=== PATIENT | male | born 1950 | race Caucasian/White ===

== ENCOUNTER 2017-07-03 08:27 | Emergency (ER) | payer OTHER ==
[~2017-07-03] VITALS: Ht 182.8 cm; Wt 108.9 kg
[~2017-07-03 08:27] MED LIST: ASPIRIN81 M1 PO; ATENOLOL25 MG PO; CIPRO500 MG PO; CLARITIN10 MG PO; DOCUSATE SODIUM1 TA2 PO; MIRALAX POWDER255 G1 PO; OMEPRAZOLE20 M2 PO; PRAZOSIN HCL2 MG PO; SENNA DOCUSATE PO; XANAX1 MG PO
[2017-07-03 08:51] LABS: BASO % 0.2 % (0.0-1.0); EOS # 0.1 10*3/uL (0.0-0.4); EOS % 0.6 % (1.0-4.0); HEMATOCRIT 43.7 % (42.0-52.0); HEMOGLOBIN 14.2 g/dl (14.0-18.0); LYMPH # 1.5 10*3/uL (1.3-4.4); LYMPH % 11.2 % (27.0-41.0); MEAN CELL VOLUME 89.9 fl (80.0-94.0); MEAN CORPUSCULAR HGB 29.2 pg (27.0-31.0); MEAN CORPUSCULAR HGB CONC 32.5 g/dl (33.0-37.0); MEAN PLATELET VOLUME 10.1 fl (9.6-12.3); MONO # 0.8 10*3/uL (0.1-1.0); MONO % 5.9 % (3.0-9.0); NEUT # 10.7 10*3/uL (2.3-7.9); NEUT % 81.8 % (47.0-73.0); PLATELET COUNT AUTOMATED 233 10*3/uL (130-400); RED BLOOD COUNT 4.86 10*6/uL (4.50-5.90); RED CELL DISTRI WIDTH 13.5 % (0-14.5); WHITE BLOOD COUNT 13.1 10*3/uL (4.8-10.8)
[2017-07-03 09:08] LABS: ALBUMIN 3.2 gm/dl (3.1-4.5); ALKALINE PHOSPHATASE 79 U/L (45-117); BUN 12 mg/dl (7-24); CHLORIDE 102 mmol/L (98-107); POTASSIUM 4.2 mmol/L (3.5-5.1); SGOT/AST 14 IU/L (3-35); SGPT/ALT 19 U/L (12-78); SODIUM 138 mmol/L (136-145); TOTAL PROTEIN 7.7 gm/dL (6.4-8.2)
[2017-07-03 09:10] LABS: TROPONIN I < 0.015 ng/ml (<0.045)
[2017-07-03 09:13] LABS: ACT PARTIAL THROMBO TIME 24.7 SECONDS (20.8-31.5); INTERNATIONAL NORM RATIO 1.1 (2.0-3.5)
[2017-07-03] MEDS ORDERED: TESSALON PERLE100 MG PO (10:11)
[2017-07-03] MEDS ORDERED: AVPAK AZITHROM250 M1 PO (10:11)
== END 2017-07-03 10:23 | disposition home or self-care (01) ==
LOC: ED 08:27
PROVIDERS: Emergency Medicine
DX: J18.9 Pneumonia, unspecified organism (principal); I48.2 Chronic atrial fibrillation; Z79.899 Other long term (current) drug therapy; Z79.82 Long term (current) use of aspirin

== ENCOUNTER 2021-01-10 17:19 | Emergency (ER) | payer OTHER ==
[~2021-01-10] VITALS: Ht 182.8 cm; Wt 78.5 kg
[~2021-01-10 17:19] MED LIST changes: +AVPAK AZITHROM250 M1 PO; +TESSALON PERLE100 MG PO
== END 2021-01-10 18:15 | disposition home or self-care (01) ==
LOC: ED 17:19
DX: M72.2 Plantar fascial fibromatosis (principal); I48.91 Unspecified atrial fibrillation; Z95.1 Presence of aortocoronary bypass graft; Z79.01 Long term (current) use of anticoagulants; Z79.899 Other long term (current) drug therapy; Z79.82 Long term (current) use of aspirin; Z98.890 Other specified postprocedural states

== ENCOUNTER 2024-02-11 08:53 | Inpatient (IN) | payer OTHER ==
[2024-02-11] VITALS (43 sets, daily range): BP systolic 67–133; BP diastolic 38–82
[~2024-02-11] VITALS: Ht 182.9 cm; Wt 91.6 kg
[2024-02-11] MEDS ORDERED: SODIUM CHLORIDE 0.9% 1,000 ML IV ONE ×3 (09:10)
[2024-02-11] MEDS ORDERED: IOHEXOL 350 MG/ML 100 ML VIAL IV ONE (09:20)
[2024-02-11] MEDS ORDERED: SODIUM CHLORIDE 0.9% 100 ML BAG IV ONE (09:20)
[2024-02-11] MEDS ORDERED: Metoprolol Tartrate 5 MG/5 ML VIAL IV ONE ×2 (09:25)
[2024-02-11 09:34] LABS: MEAN CORPUSCULAR HGB 24.4 pg (27.0-31.0); MEAN CORPUSCULAR HGB CONC 30.9 g/dl (33.0-37.0); MEAN PLATELET VOLUME 10.2 fl (9.6-12.3); PLATELET COUNT AUTOMATED 194 10*3/uL (130-400); RED BLOOD COUNT 4.43 10*6/uL (4.50-5.90); RED CELL DISTRI WIDTH 16.4 % (0-14.5); WHITE BLOOD COUNT 9.9 10*3/uL (4.8-10.8)
[2024-02-11 09:35] LABS: MANUAL DIFF REFLEX YES
[2024-02-11 09:44] LABS: ACT PARTIAL THROMBO TIME 32.5 SECONDS (20.0-32.1)
[2024-02-11 09:52] LABS: POTASSIUM 4.6 mmol/L (3.4-5.1); TOTAL PROTEIN 7.6 gm/dL (6.0-8.0)
[2024-02-11 09:58] LABS: BURR CELLS MODERATE; MICROCYTOSIS SLIGHT; PLATELET SUFFICIENCY NORMAL (NORMAL); TOTAL CELLS COUNTED 100 #CELLS
[2024-02-11 09:59] LABS: OVALOCYTES FEW; POLYCHROMASIA SLIGHT; ROULEAUX SLIGHT
[2024-02-11] MEDS ORDERED: ACETAMINOPHEN 500 MG TAB PO ONE (10:35)
[2024-02-11] MEDS ORDERED: Vancomycin Hydrochloride 250 ML IV ONE (10:50)
[2024-02-11] MEDS ORDERED: Piperacillin Sodium/Tazobact 50 ML IV ONE (10:50)
[2024-02-11 11:45] LABS: BILIRUBIN Negative (Negative); BLOOD 2+ (Negative); CLARITY Turbid (Clear); COLOR Yellow (Yellow); GLUCOSE 3+ (Negative); KETONE Trace (Negative); LEUKO ESTERASE 3+ (Negative); NITRITE Negative (Negative); PH 6.5 (4.5-8.0); SPECIFIC GRAVITY 1.025 (1.001-1.030)
[2024-02-11 11:56] LABS: WBC TNTC wbc/hpf (0-5)
[2024-02-11] MEDS ORDERED: NOREPINEPHRINE BITARTRATE/D5W 250 ML IV SCH ×2 (12:00→13:40)
[2024-02-11] MEDS ORDERED: Diltiazem Hydrochloride 25 MG/5 ML VIAL IV ONE (12:20)
[2024-02-11] MEDS ORDERED: MORPHINE Sulfate 2 MG/ML SYR IV PRN (13:25)
[2024-02-11] MEDS ORDERED: Acetaminophen/Hydrocodone 5 MG/325 MG TABLET PO PRN (13:25)
[2024-02-11] MEDS ORDERED: ACETAMINOPHEN 325 MG TAB PO PRN (13:25)
[2024-02-11] MEDS ORDERED: DIGOXIN 500 MCG/2 ML AMP IV ONE (13:50)
[2024-02-11] MEDS ORDERED: HEPARIN SODIUM 250 ML IV SCH (14:35)
[2024-02-11] MEDS ORDERED: ELIQUIS5 M1 PO (15:11)
[2024-02-11] MEDS ORDERED: ATORVASTATIN CA80 M1 PO (15:12)
[2024-02-11] MEDS ORDERED: VOLTAREN ARTHRI20 GM T (15:15)
[2024-02-11] MEDS ORDERED: DEXTROSE 10 % IN WATER 250 ML IV PRN (15:15)
[2024-02-11] MEDS ORDERED: JARDIANCE25 MG PO (15:16)
[2024-02-11] MEDS ORDERED: FUROSEMIDE20 M1 PO (15:16)
[2024-02-11] MEDS ORDERED: INSULIN GL100 UNIT/2 SQ (15:18)
[2024-02-11] MEDS ORDERED: LISINOPRIL10 M1 PO (15:18)
[2024-02-11] MEDS ORDERED: LISINOPRIL5 MG PO (15:20)
[2024-02-11] MEDS ORDERED: METOPROLOL TART50 M1 PO (15:21)
[2024-02-11] MEDS ORDERED: METFORMIN HYD1000 MG PO (15:21)
[2024-02-11] MEDS ORDERED: CENTRAVITES 501 EACH PO (15:25)
[2024-02-11] MEDS ORDERED: POTASSIUM CHLO20 ME3 PO (15:27)
[2024-02-11] MEDS ORDERED: FLOMAX0.4 MG PO (15:28)
[2024-02-11] MEDS ORDERED: INSULIN LISPRO 1 UNIT/0.01 ML SQ SCH (16:30)
[2024-02-11] MEDS ORDERED: DICLOFENAC SODIUM 100 GM TUBE T PRN (16:45)
[2024-02-11] MEDS ORDERED: Piperacillin Sodium/Tazobact 2.25 GM in SODIUM CHLORIDE 0.9% 50 ML IV SCH (18:00)
[2024-02-11] MEDS ORDERED: Ondansetron Hydrochloride 4 MG/2 ML VIAL IV PRN (18:50)
[2024-02-11] MEDS ORDERED: ACETAMINOPHEN 325 MG SUPP R PRN (18:50)
[2024-02-11] MEDS ORDERED: ACETAMINOPHEN 650 MG SUPP R PRN (19:32)
[2024-02-11] MEDS ORDERED: DIGOXIN 500 MCG/2 ML AMP IV SCH (20:00)
[2024-02-12] VITALS (21 sets, daily range): BP systolic 86–115; BP diastolic 54–77
[2024-02-12 05:23] LABS: ALKALINE PHOSPHATASE 152 U/L (46-116); BUN 26 mg/dl (9-23); CHLORIDE 103 mmol/L (98-107); FREE T4 0.92 ng/dl (0.89-1.76); POTASSIUM 3.9 mmol/L (3.4-5.1); SGPT/ALT 31 U/L (5-49); TOTAL PROTEIN 6.2 gm/dL (6.0-8.0)
[2024-02-12] MEDS ORDERED: Pantoprazole Sodium 40 MG VIAL IV SCH (06:00)
[2024-02-12 06:15] LABS: MEAN CORPUSCULAR HGB 24.3 pg (27.0-31.0); MEAN CORPUSCULAR HGB CONC 30.7 g/dl (33.0-37.0); MEAN PLATELET VOLUME 11.4 fl (9.6-12.3); PLATELET COUNT AUTOMATED 145 10*3/uL (130-400); RED BLOOD COUNT 3.67 10*6/uL (4.50-5.90); RED CELL DISTRI WIDTH 16.3 % (0-14.5); WHITE BLOOD COUNT 12.6 10*3/uL (4.8-10.8)
[2024-02-12 06:53] LABS: MANUAL DIFF REFLEX YES
[2024-02-12 06:58] LABS: PLATELET SUFFICIENCY NORMAL (NORMAL); TOTAL CELLS COUNTED 100 #CELLS
[2024-02-12 06:59] LABS: ACANTHOCYTES FEW; BURR CELLS MODERATE
[2024-02-12 07:00] LABS: OVALOCYTES FEW
[2024-02-12] MEDS ORDERED: VANCOMYCIN/WATER FOR INJ (PEG) 250 ML IV SCH (08:00)
[2024-02-12] MEDS ORDERED: ASPIRIN ENTERIC COATED 81 MG TAB PO SCH (10:00)
[2024-02-12] MEDS ORDERED: ALPRAZolam 0.5 MG TAB PO SCH (10:00)
[2024-02-12] MEDS ORDERED: Piperacillin Sodium/Tazobact 50 ML IV SCH (12:00)
[2024-02-12] MEDS ORDERED: METOPROLOL SUCCINATE XR 25 MG TAB PO SCH (12:30)
[2024-02-12] MEDS ORDERED: BISACODYL 5 MG TAB PO PRN ×2 (16:45→16:51)
[2024-02-12] MEDS ORDERED: DIGOXIN 500 MCG/2 ML AMP IV PRN (21:30)
[2024-02-13] VITALS: BP 87/59
[2024-02-13] MEDS ORDERED: Diltiazem Hydrochloride 25 MG/5 ML VIAL IV ONE (00:15)
[2024-02-13 04:00] VITALS: BP 95/68
[2024-02-13] MEDS ORDERED: Magnesium Hydroxide 30 ML UDC PO PRN (04:55)
[2024-02-13 05:43] LABS: ALKALINE PHOSPHATASE 178 U/L (46-116); BUN 24 mg/dl (9-23); CHLORIDE 101 mmol/L (98-107); POTASSIUM 4.2 mmol/L (3.4-5.1); SGPT/ALT 40 U/L (5-49); TOTAL PROTEIN 6.3 gm/dL (6.0-8.0)
[2024-02-13 06:31] LABS: HEMATOCRIT 30.7 % (42.0-52.0); MEAN CELL VOLUME 78.3 fl (80.0-94.0); MEAN CORPUSCULAR HGB 24.2 pg (27.0-31.0); MEAN CORPUSCULAR HGB CONC 30.9 g/dl (33.0-37.0); MEAN PLATELET VOLUME 11.8 fl (9.6-12.3); PLATELET COUNT AUTOMATED 127 10*3/uL (130-400); RED BLOOD COUNT 3.92 10*6/uL (4.50-5.90); RED CELL DISTRI WIDTH 16.6 % (0-14.5); WHITE BLOOD COUNT 10.9 10*3/uL (4.8-10.8)
[2024-02-13 06:35] LABS: MANUAL DIFF REFLEX YES
[2024-02-13 07:15] LABS: TOTAL CELLS COUNTED 100 #CELLS
[2024-02-13 07:16] LABS: BURR CELLS MODERATE; OVALOCYTES FEW; PLATELET SUFFICIENCY LOW (NORMAL); POLYCHROMASIA SLIGHT; ROULEAUX SLIGHT; TARGET CELLS FEW
[2024-02-13 07:17] LABS: MICROCYTOSIS SLIGHT
[2024-02-13 08:00] VITALS: BP 98/66
[2024-02-13 12:00] VITALS: BP 99/69
[2024-02-13] MEDS ORDERED: CHAIR CUSHION DEVICE ONE (12:53)
[2024-02-13] MEDS ORDERED: PERFLUTREN PROTEIN-A MICROSPHR 3 ML VIAL IV ONE (13:59)
== END 2024-02-13 15:27 | disposition short-term general hospital (02) | DRG 871 ==
LOC: ED 08:53 → ICCU 12:30 → EDHOLD 12:30 → ICCU 17:48
PROVIDERS: Student in an Organized Health Care Education/Training Program; ADMIT Internal Medicine; ATTEND Internal Medicine
PROC: 02HV33Z Insertion of Infusion Device into Superior Vena Cava, Percutaneous Approach (ICD-10-PCS; principal; 2024-02-11)
PROC: B548ZZA Ultrasonography of Superior Vena Cava, Guidance (ICD-10-PCS; 2024-02-11)
DX: A41.9 Sepsis, unspecified organism (principal); I33.0 Acute and subacute infective endocarditis; N17.0 Acute kidney failure with tubular necrosis; R65.21 Severe sepsis with septic shock; N39.0 Urinary tract infection, site not specified; E87.20 Acidosis, unspecified; I48.92 Unspecified atrial flutter; E87.1 Hypo-osmolality and hyponatremia; I48.20 Chronic atrial fibrillation, unspecified; Z66 Do not resuscitate; E78.5 Hyperlipidemia, unspecified; I10 Essential (primary) hypertension; I25.10 Atherosclerotic heart disease of native coronary artery without angina pectoris; R31.21 Asymptomatic microscopic hematuria; D50.9 Iron deficiency anemia, unspecified; E11.65 Type 2 diabetes mellitus with hyperglycemia; E88.09 Other disorders of plasma-protein metabolism, not elsewhere classified; M72.2 Plantar fascial fibromatosis; R74.01 Elevation of levels of liver transaminase levels; Z85.07 Personal history of malignant neoplasm of pancreas; Z79.899 Other long term (current) drug therapy; Z79.01 Long term (current) use of anticoagulants; Z82.49 Family history of ischemic heart disease and other diseases of the circulatory system; Z79.2 Long term (current) use of antibiotics; Z95.1 Presence of aortocoronary bypass graft